=== PATIENT | male | born 1955 | race Caucasian/White ===

== ENCOUNTER 2018-01-26 09:56 | Inpatient (IN) | payer OTHER ==
--- NOTE | 2018-01-26 10:10 | CPEKG ---
Heart Rate: 40 RR Interval: 1500 P-R Interval: 192 QRSD Interval: 96 QT Interval: 552 QTC Interval: 451 P [place]: 5 QRS [place]: 50 T Wave [place]: 99 EKG Severity - ABNORMAL ECG - EKG Impression: SINUS BRADYCARDIA EKG Impression: BORDERLINE INFERIOR Q WAVES EKG Impression: PROBABLE ANTEROLATERAL INFARCT, OLD Electronically Signed By: Farzaneh Quijano 27-Jan-2018 18:03:51
[2018-01-26] MEDS ORDERED: ONDANSETRON 4 MG/2 ML VIAL IVP ONE (10:14)
[2018-01-26] MEDS ORDERED: NS 1,000 ML IV ONE (10:14)
--- NOTE | 2018-01-26 10:23 | EDPHY ---
H & P Stated Complaint: syncopal episode Time Seen by Provider: 01/26/18 10:03 HPI/ROS: CHIEF COMPLAINT: Syncope HISTORY OF PRESENT ILLNESS: The patient is a 62-year-old man with a history of developmental delay and is now being worked up for a tumor in the frontal skull base. 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 He lost his vision 2 weeks ago. He was at an appointment with the neurosurgeon Dr. Lm Duarte this morning when he had what they think was a syncopal episode. Mom does not describe any seizure-like activity. The patient states that he has been slightly nauseous and vomited a couple times in the last few days. No diarrhea. No fever. No headaches. No focal weakness or deficits other than the vision loss. At the neurosurgery office his heart rate was in the 30s and he was transferred here. The patient is slightly diaphoretic. He denies chest pain or shortness of breath. He denies any previous history of pulmonary disease. REVIEW OF SYSTEMS: Constitutional: denies: chills, fever, recent illness, recent injury EENTM: See HPI Respiratory: denies: cough, shortness of breath Cardiac: denies: chest pain, irregular heart rate, lightheadedness, palpitations Gastrointestinal/Abdominal: denies: abdominal pain, diarrhea, nausea, vomiting, blood streaked stools Genitourinary: denies: dysuria, frequency, hematuria, pain Musculoskeletal: denies: joint pain, muscle pain Skin: denies: lesions, rash, jaundice, bruising Neurological: denies: headache, numbness, paresthesia, tingling, dizziness, weakness Hematologic/Lymphatic: denies: blood clots, easy bleeding, easy bruising Immunologic/allergic: denies: HIV/AIDS, transplant EXAM: GENERAL: Slightly diaphoretic, moderate distress HEAD: Atraumatic, normocephalic. EYES: Eyes open white and slightly dysconjugate, baseline according to mom ENT: TMs normal, nares patent, oropharynx clear without exudates. Moist mucous membranes. NECK: Normal range of motion, supple without lymphadenopathy or JVD. LUNGS: Breath sounds clear to auscultation bilaterally and equal. No wheezes rales or rhonchi. HEART: Bradycardic without murmurs, rubs or gallops. ABDOMEN: Soft, nontender, normoactive bowel sounds. No guarding, no rebound. No masses appreciated. BACK: No CVA tenderness, no spinal tenderness, step-offs or deformities EXTREMITIES: Normal range of motion, no pitting or edema. No clubbing or cyanosis. NEUROLOGICAL: Cranial nerves II through XII grossly intact. Normal speech, normal gait. 5/5 strength, normal movement in all extremities, normal sensation PSYCH: Normal mood, normal affect. SKIN: Warm, dry, normal turgor, no visible rashes or lesions. Source: Patient, Family, RN/MD Exam Limitations: No limitations - Medical/Surgical History Hx Asthma: No Hx Chronic Respiratory Disease: No Hx Diabetes: No Hx Cardiac Disease: Yes Hx Renal Disease: No Hx Cirrhosis: No Hx Alcoholism: No Hx HIV/AIDS: No Hx Splenectomy or Spleen Trauma: No Other PMH: HTN, brain tumor, meniers, hepatitis - Family History Significant Family History: No pertinent family hx - Social History Smoking Status: Never smoked Alcohol Use: Sober Drug Use: None Constitutional: Initial Vital Signs Temperature (C) 36.6 C 01/26/18 10:01 Heart Rate 39 L 01/26/18 10:01 Respiratory Rate 18 01/26/18 10:01 Blood Pressure 101/61 01/26/18 10:01 O2 Sat (%) 94 01/26/18 10:01 O2 Delivery Mode Nasal Cannula O2 (L/minute) 2 Allergies/Adverse Reactions: No Known Allergies Allergy (Unverified 01/26/18 10:01) Home Medications: Medication Instructions Recorded Aspirin [Aspirin 81mg (*)] 81 mg PO DAILY 01/26/18 Lisinopril/Hctz 20/12.5MG 1 ea PO DAILY 01/26/18 [Zestoretic/Prinzide 20/12.5MG (*)] Metoprolol Succinate Xr [Toprol Xl 50 mg PO DAILY 01/26/18 50 mg (*)] Medical Decision Making - Diagnostics EKG Interpretation: An EKG obtained and was read and documented in trace view. Please see trace view for full reading and report. Sinus bradycardia rate of 40, no acute ischemic changes Imaging: Discussed imaging studies w/ yard caller Radiologist ED Course/Re-evaluation: The patient has an infiltrate on x-ray and an elevated white blood count. I will start antibiotics and order lactate. He also has bradycardic and will need to be admitted for this in the setting of syncope. Lactate is negative Differential Diagnosis: Partial list of the Differential diagnosis considered include but were not limited to; syncope, bradycardia, seizure, brain tumor, pneumonia, sepsis and although unlikely based on the history and physical exam, I also considered head injury, brain infection, abscess. Critical Care Time: Critical care time spent by Dr. Isabella da silva exclusive with this patient was 45 minutes, exclusive of the PA time exclusive of procedures. The organ system that was at risk was neurologic, pulmonary and I gave diagnostics, admission and treatment to prevent worsening of the patient's condition - Data Points Laboratory Results: Laboratory Results 01/26/18 10:00 01/26/18 10:00 Microbiology Results: MICROBIOLOGY 01/26/18 11:16 Blood Blood Culture - Preliminary 01/26/18 10:51 Blood Blood Culture - Preliminary Medications Given: Amlodipine Besylate (Norvasc) 5 mg PO DAILY CHEN Stop: 07/27/18 08:59 Last Admin: 01/28/18 09:01 Dose: 5 mg Aspirin (Aspirin) 81 mg PO DAILY CHEN Stop: 07/26/18 08:59 Last Admin: 01/28/18 08:58 Dose: 81 mg Azithromycin (Zithromax) 250 mg PO DAILY CHEN PRN Reason: Protocol Stop: 02/27/18 08:59 Last Admin: 01/28/18 08:58 Dose: 250 mg Enoxaparin Sodium (Lovenox) 40 mg SC DAILY CHEN Stop: 07/27/18 09:44 Last Admin: 01/28/18 10:55 Dose: 40 mg Haloperidol (Haldol) 1 - 2 mg PO Q6HRS PRN; Protocol PRN Reason: Agitation Stop: 07/27/18 09:24 Last Admin: 01/28/18 10:51 Dose: 1 mg Ceftriaxone Sodium/Dextrose (Rocephin 1 Gm (Premix)) 50 mls @ 100 mls/hr IV DAILY CHEN PRN Reason: Protocol Stop: 02/27/18 08:59 Last Admin: 01/28/18 08:59 Dose: 50 mls Melatonin (Melatonin) 3 mg PO HS CHEN Stop: 07/26/18 21:59 Last Admin: 01/27/18 21:57 Dose: 3 mg Discontinued Medications Famotidine (Pepcid) 40 mg PO EDNOW ONE Stop: 01/26/18 11:45 Last Admin: 01/26/18 11:45 Dose: 40 mg Haloperidol Lactate (Haldol Injection) 2 mg IVP ONCE ONE Stop: 01/27/18 17:51 Last Admin: 01/27/18 18:03 Dose: 2 mg Sodium Chloride (Ns) 1,000 mls @ 0 mls/hr IV EDNOW ONE; Wide Open PRN Reason: Protocol Stop: 01/26/18 10:15 Last Admin: 01/26/18 10:29 Dose: 1,000 mls Levofloxacin/Dextrose (Levaquin 750 Mg (Premix)) 150 mls @ 100 mls/hr IV EDNOW ONE PRN Reason: Protocol Stop: 01/26/18 12:19 Last Admin: 01/26/18 11:16 Dose: 150 mls Levofloxacin/Dextrose (Levaquin 750 Mg (Premix)) 150 mls @ 100 mls/hr IV DAILY CHEN PRN Reason: Protocol Stop: 02/26/18 08:59 Last Admin: 01/27/18 09:23 Dose: 150 mls Sodium Chloride (Ns) 1,000 mls @ 75 mls/hr IV CONT CHEN Stop: 01/28/18 03:19 Last Admin: 01/27/18 06:12 Dose: 1,000 mls Ondansetron HCl (Zofran) 4 mg IVP EDNOW ONE Stop: 01/26/18 10:15 Last Admin: 01/26/18 11:45 Dose: 4 mg Point of Care Test Results: Chemistry 01/26/18 10:11 POC Troponin I 0.00 ng/mL ng/mL (0.00-0.08) Departure - Departure Disposition: [facility] Inpatient Acute Clinical Impression: Bradycardia, Syncope and collapse Pneumonia Qualifiers: Pneumonia type: due to unspecified organism Laterality: unspecified laterality Lung location: lower lobe of lung Qualified Code(s): J18.1 - Lobar pneumonia, unspecified organism Condition: Fair
[2018-01-26 10:25] LABS: PLATELET COUNT 235 10^3/uL (150-400)
[2018-01-26 10:41] LABS: CREATINE KINASE 48 IU/L (0-224)
[2018-01-26 10:42] LABS: INR 1.15 (0.83-1.16); PROTIME(PATIENT) 14.9 SEC (12.0-15.0)
[2018-01-26] MEDS ORDERED: FAMOTIDINE 20 MG TAB ONE (11:42)
[2018-01-26] MEDS ORDERED: FAMOTIDINE 20 MG TAB PO ONE (11:44)
[2018-01-26] MEDS ORDERED: ACETAMINOPHEN 325 MG TAB PO PRN (13:59)
[2018-01-26] MEDS ORDERED: ONDANSETRON DISINTEGRATING 4 MG TAB PO PRN (13:59)
[2018-01-26] MEDS ORDERED: ONDANSETRON 4 MG/2 ML VIAL IVP PRN (13:59)
--- NOTE | 2018-01-26 14:36 | PDGENHP ---
History and Physical - Chief Complaint syncope - History of Present Illness The patient is a 62-year-old man with a history of developmental delay and recent diagnosis of optic nerve tumor with subsequent blindness who was at his neuro surgery office and had a syncopal episode. He said he felt lightheaded. He was noted to have a HR in the 30's while at the office. He now feels his normal self. He did not have LOC. There was no noted seizure activity. He does not have a hx of bradycardia. He had been feeling his normal self until this morning although the records suggest that he may have had some nausea and emesis over the past few days. he denies cp, sob, n/v/d, fever, focal weakness. In the ER, CXR showed a left sided pneumonia. EKG: sinus bradycardia PMHx: HTN optic nerve tumor blindness Developmental kyle Soc Hx: no T/E/I FmHx: non contributory History Information - Allergies/Home Medication List Allergies/Adverse Reactions: No Known Allergies Allergy (Unverified 01/26/18 10:01) Home Medications: Aspirin [Aspirin 81mg (*)] 81 mg PO DAILY 01/26/18 [Last Taken 01/26/18] Lisinopril/Hctz 20/12.5MG [Zestoretic/Prinzide 20/12.5MG (*)] 1 ea PO DAILY [Last Taken 01/26/18] Metoprolol Succinate Xr [Toprol Xl 50 mg (*)] 50 mg PO DAILY 01/26/18 [Last Taken 01/26/18] I have personally reviewed and updated: medical history, social history - Social History Smoking Status: Never smoked Alcohol Use: Sober Drug Use: None Review of Systems Review of Systems: ROS: 10pt was reviewed & negative except for what was stated in HPI & below Physical Exam Physical Exam: Temp Pulse Resp BP Pulse Ox 36.3 C 42 L 16 122/70 H 97 01/26/18 12:17 01/26/18 12:17 01/26/18 12:17 01/26/18 12:17 01/26/18 12:17 O2 (L/minute) 2 Constitutional: no apparent distress Ears, Nose, Mouth, Throat: moist mucous membranes Cardiovascular: bradycardia, No edema Respiratory: no respiratory distress, no rales or rhonchi, clear to auscultation Gastrointestinal: normoactive bowel sounds, soft, non-tender abdomen Skin: warm Neurologic: AAOx3 Psychiatric: interacting appropriately, not anxious, not encephalopathic Lymph, Heme, Immunologic: No petechiae Lab Data & Imaging Review 01/26/18 10:00 01/26/18 10:00 WBC 14.38 10^3/uL (3.80-9.50) H 01/26/18 10:00 RBC 5.58 10^6/uL (4.40-6.38) 01/26/18 10:00 Hgb 17.4 g/dL (13.7-17.5) 01/26/18 10:00 Hct 47.7 % (40.0-51.0) 01/26/18 10:00 MCV 85.5 fL (81.5-99.8) 01/26/18 10:00 MCH 31.2 pg (27.9-34.1) 01/26/18 10:00 MCHC 36.5 g/dL (32.4-36.7) 01/26/18 10:00 RDW 12.2 % (11.5-15.2) 01/26/18 10:00 Plt Count 235 10^3/uL (150-400) 01/26/18 10:00 MPV 10.7 fL (8.7-11.7) 01/26/18 10:00 Neut % (Auto) Not Reported 01/26/18 10:00 Lymph % (Auto) Not Reported 01/26/18 10:00 [place] % (Auto) Not Reported 01/26/18 10:00 Eos % (Auto) Not Reported 01/26/18 10:00 Baso % (Auto) Not Reported 01/26/18 10:00 Nucleat RBC Rel Count Not Reported 01/26/18 10:00 Absolute Neuts (auto) Not Reported 01/26/18 10:00 Absolute Lymphs (auto) Not Reported 01/26/18 10:00 Absolute Monos (auto) Not Reported 01/26/18 10:00 Absolute Eos (auto) Not Reported 01/26/18 10:00 Absolute Basos (auto) Not Reported 01/26/18 10:00 Absolute Nucleated RBC Not Reported 01/26/18 10:00 Immature Gran % Not Reported 01/26/18 10:00 Seg Neutrophils % 69.0 % 01/26/18 10:00 Band Neutrophils % 1.0 % 01/26/18 10:00 Lymphocytes % 22.0 % 01/26/18 10:00 Monocytes % 8.0 % 01/26/18 10:00 Eosinophils % 0 % 01/26/18 10:00 Basophils % 0 % 01/26/18 10:00 Metamyelocytes % 0 % 01/26/18 10:00 Myelocytes % 0 % 01/26/18 10:00 Promyelocytes % 0 % 01/26/18 10:00 Blast Cells % 0 % 01/26/18 10:00 Immature Gran # Not Reported 01/26/18 10:00 Absolute Seg Neuts 9.92 10^/uL (1.70-6.50) H 01/26/18 10:00 Absolute Band Neuts 0.14 10^3/uL (0.00-0.70) 01/26/18 10:00 Absolute Lymphocytes 3.16 10^3/uL (1.00-3.00) H 01/26/18 10:00 Absolute Monocytes 1.15 10^3/uL (0.30-0.80) H 01/26/18 10:00 Absolute Eosinophils 0.00 10^3/uL (0.03-0.40) L 01/26/18 10:00 Absolute Basophils 0.00 10^3/uL (0.02-0.10) L 01/26/18 10:00 Absolute Metamyelocyte 0.00 10^3/mL (0.00-0.00) 01/26/18 10:00 Absolute Myelocytes 0.00 10^3/mL (0.00-0.00) 01/26/18 10:00 Absolute Promyelocytes 0.00 10^3/uL (0.00-0.00) 01/26/18 10:00 Absolute Plasma Cells 0.00 10^3/uL (0.00-0.00) 01/26/18 10:00 Atypical Lymphocytes 2+ H 01/26/18 10:00 Absolute Blast Cells 0.00 10^3/uL (0.00-0.00) 01/26/18 10:00 Plasma Cells % 0 % 01/26/18 10:00 Platelet Estimate ADEQUATE (ADEQ) 01/26/18 10:00 Polychromasia 1+ H 01/26/18 10:00 PT 14.9 SEC (12.0-15.0) 01/26/18 10:00 INR 1.15 (0.83-1.16) 01/26/18 10:00 APTT 25.3 SEC (23.0-38.0) 01/26/18 10:00 VBG Lactic Acid 1.1 mmol/L (0.7-2.1) 01/26/18 11:38 Sodium 130 mEq/L (135-145) L 01/26/18 10:00 Potassium 4.6 mEq/L (3.3-5.0) 01/26/18 10:00 Chloride 97 mEq/L (97-110) 01/26/18 10:00 Carbon Dioxide 21 mEq/l (22-31) L 01/26/18 10:00 Anion Gap 12 mEq/L (8-16) 01/26/18 10:00 BUN 22 mg/dL (7-23) 01/26/18 10:00 Creatinine 1.0 mg/dL (0.7-1.3) 01/26/18 10:00 Estimated GFR > 60 01/26/18 10:00 Glucose 116 mg/dL (70-100) H 01/26/18 10:00 Calcium 9.9 mg/dL (8.5-10.4) 01/26/18 10:00 Total Bilirubin 1.3 mg/dL (0.1-1.4) 01/26/18 10:06 Creatine Kinase 48 IU/L (0-224) 01/26/18 10:00 CK-MB (CK-2) Fraction 1.09 ng/mL (0.00-4.55) 01/26/18 10:00 POC Troponin I 0.00 ng/mL (0.00-0.08) 01/26/18 10:11 Assessment & Plan Assessment: #Syncope #Bradycardia #Left sided pneumonia #N/V #Hyponatremia #Developmental Delay #Optic nerve tumor with recent blindness #Hx of HTN Plan: Admit Cards consult IVF TTE, telemetry, trop hold BP meds cont Levaquin SCD's
--- NOTE | 2018-01-26 15:34 | PDMN ---
Medical Necessity Medical necessity: Pt meets inpt criteria per MD order and MCG M-340, syncope, A -1 day. Pt admitted w/syncope, bradycardia (HR in 39-42), probable PNA, IVF, IV ABX's, pt has comorbid conditions of HTN, optic nerve tumor, blindness, developmental delay. Anticipate >2 MN for ongoing eval and treatment.
[2018-01-26] MEDS: NS 1,000 ML IV SCH (16:30)
[2018-01-27 05:26] LABS: PLATELET COUNT 157 10^3/uL (150-400)
[2018-01-27] MEDS: NS 1,000 ML IV SCH (06:12)
--- NOTE | 2018-01-27 07:38 | SOAPPROG ---
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 Ongoing bradycardia no new neuro issues Plan: [facility] or transfer Cardiology consult today due to bradycardia 01/27/18 07:35 01/27/18 07:38 Subjective: Patient is awake and alert, sitting in bedside chair feeling "fine." He denies numbness tingling or weakness. He is blind Objective: Vital Signs Temp Pulse Resp BP Pulse Ox 36.6 C 47 L 16 130/74 H 99 01/27/18 04:00 01/27/18 04:00 01/27/18 04:00 01/27/18 04:00 01/27/18 04:00 Microbiology 01/26/18 16:15 Respiratory Panel (PCR) - Final Nasal, Sinus - Swab No Organism Detected Laboratory Results 01/27/18 03:20 01/27/18 03:20 01/26/18 01/27/18 01/28/18 05:59 05:59 05:59 Intake Total 2258 Balance 2258 PT 14.9 SEC (12.0-15.0) 01/26/18 10:00 INR 1.15 (0.83-1.16) 01/26/18 10:00 Neuro: A+Ox4 Virk, sens +Lt blind speech clear ICD10 Worksheet Patient Problems: Problems Problem Status Onset Bradycardia Acute Pneumonia Acute Syncope and collapse Acute
[2018-01-27] MEDS ORDERED: METOPROLOL SUCCINATE XR 50 MG TAB PO SCH (09:00)
--- NOTE | 2018-01-27 09:11 | HOSPPROG ---
Hospitalist Progress Note Assessment/Plan: # syncope/bradycardia - discuss with nsg regarding possible Alan's reflex - hold metop, follow on tele - cards eval, possible pcm # recent diagnosis of intracranial tumor causing blindness - i am not clear on the exact diagnosis (if known) or prognosis at this point - plan is surgical resection at either - inpatient transfer vs as outpatient # developmental delay # htn - cont Subjective: patient without acute complaints today; blindness persists Objective: Vital Signs Temp Pulse Resp BP Pulse Ox 36.9 C 40 L 14 137/76 H 91 L 01/27/18 07:39 01/27/18 07:39 01/27/18 07:39 01/27/18 07:39 01/27/18 07:39 Microbiology 01/26/18 16:15 Respiratory Panel (PCR) - Final Nasal, Sinus - Swab No Organism Detected Laboratory Results 01/27/18 03:20 01/27/18 03:20 01/26/18 01/27/18 01/28/18 05:59 05:59 05:59 Intake Total 2258 Balance 2258 PT 14.9 SEC (12.0-15.0) 01/26/18 10:00 INR 1.15 (0.83-1.16) 01/26/18 10:00 chart reviewed discussed with Heather diallo personally reviewed CXR reviewed ICD10 Worksheet Patient Problems: Problems Problem Status Onset Bradycardia Acute Syncope and collapse Acute Pneumonia Acute
[2018-01-27] MEDS: ASPIRIN 81 MG CHEWABLE TAB PO SCH (10:19)
--- NOTE | 2018-01-27 10:49 | ECHO ---
[email or web address] [address] [address] Main: [phone] Fax: [email or web address] Echocardiogram Name: RAVI MONTEZ MR#: [id number] Study Date: 01/27/2018 Study Time: 08:20 AM Date of : 1955 Age: 62 year(s) Height: 167.6 cm (66 in.) Weight: 87.54 kg (193 lb.) BSA: 1.97 m2 Gender: Male Examination: Echo Indication: Cardiac: syncope Image Quality: Technically Difficult Contrast: Requested by: Imer [place] BP: 137 mmHg/76 mmHg Heart Rate: Rhythm: Indication: Cardiac: syncope Procedure Staff Rib Chopper: Shobha Palafox RDCS Reading Physician: Gerard Dykes MD Requesting Provider: Conclusions: Normal size left ventricle. Mild concentric LV hypertrophy. Normal global systolic LV function. EF is 54 %. No regional wall motion abnormality. Normal RV function. The left atrium is mildly dilated. The mitral valve is normal in appearance and function. No mitral stenosis is present. Technically difficult and limited assessment of mitral regurgitation. There is no significant aortic valve regurgitation. No aortic valve stenosis is present. Technically difficult visualization of tricuspid regurgitation. Normal size aortic root measuring 2.8 cm. Normal size ascending aorta measuring 2.8 cm. No previous. Measurements: Chambers Valvular Assessment AV/MV Valvular Assessment TV/PV Normal Normal Normal Name Value Range Name Value Range Name Value Range Ao Melia (2D): 2.8 cm (1.4 cm-2.6 AV Vmax: 1.21 m/s (1 m/s-1.7 PV Vmax: 1.43 m/s (0.6 m/s-0.9 cm) m/s) m/s) IVSd (2D): 1.1 cm (0.6 cm-1.1 AV maxP mmHg ( - ) PV PGmax: 8 mmHg ( - ) cm) AV meanP mmHg ( - ) LVDd (2D): 4.1 cm (4.2 cm-5.9 MARIA L (VTI): 2.6 cm ( - ) cm) MV E Vmax: 0.70 m/s ( - ) LVDs (2D): 3.0 cm (2.1 cm-4 MV A Vmax: 0.87 m/s ( - ) cm) MV E/A: 0.80 ( - ) MV PHT: 0.082 s ( - ) Patient: RAVI MONTEZ Study Date: 01/27/2018 Page 1 of 3 08:20 AM LVPWd (2D): 1.2 cm (0.6 cm-1 MVA (PHT): 2.7 s ( - ) cm) LVOTd 2.1 cm 2.1 cm mm LVEF (BP): 54 % (>=55 %) RVDd(2D): 3.2 cm (1.9 cm-3.8 cmmm) Continued Measurements: Chambers Valvular Assessment AV/MV Name Value Name Value LADs: 3.9 cm MV DecTime: 253 m/s LADs Lon.8 cm MV E' Septal: 0.07 m/s LA Area: 18.3 cm2 MV E/E' Septal: 10.30 LA Volume: 69 ml MV E/E' Lateral: 14.00 LA Volume Index: 35.0 ml/m2 RA Area: 14.3 cm2 Additional Vessels Name Value Ao Ascendin.8 cm Findings: Left Ventricle: Normal size left ventricle. Mild concentric LV hypertrophy. Normal global systolic LV function. EF is 54 %. No regional wall motion abnormality. Unable to assess diastolic dysfunction. Right Ventricle: Normal size right ventricle. Normal RV function. Left Atrium: The left atrium is mildly dilated. Right Atrium: The right atrium is normal in size. Mitral Valve: The mitral valve is normal in appearance and function. No mitral stenosis is present. Technically difficult and limited assessment of mitral regurgitation. Aortic Valve: The aortic valve is normal in appearance and function. There is no significant aortic valve regurgitation. No aortic valve stenosis is present. Technically difficult visualization of aortic valve leaflets. Tricuspid Valve: The tricuspid valve is normal in appearance and function. Technically difficult visualization of tricuspid regurgitation. Pulmonic Valve: The pulmonic valve is normal in appearance and function. There is no pulmonic regurgitation seen. Aorta: The aorta is normal. Normal size aortic root measuring 2.8 cm. Normal size ascending aorta measuring 2.8 cm. IVC: The IVC is normal sized. Pericardium: No pericardial effusion. Evidence suggestive of hemodynamic compromise. No pleural effusion. Exam Comments: Technically difficult due to patient body habitus. (No Signature Object) Patient: RAVI MONTEZ Study Date: 01/27/2018 Page 2 of 3 08:20 AM Patient: RAVI MONTEZ Study Date: 01/27/2018 Page 3 of 3 08:20 AM [id number]
--- NOTE | 2018-01-27 13:19 | GCON ---
[f rep st] CONSULTATION CARDIOLOGY CONSULTATION. DATE OF CONSULTATION: 01/27/2018 REASON FOR CONSULTATION: We were asked by Dr. Vazquez, of [facility] to evaluate the patient for his hypotension and recent episode of syncope. HISTORY OF PRESENT ILLNESS: The patient is a 62-year-old male with a history of developmental delay, recent diagnosis of an intracranial tumor with resultant blindness for the past 2 weeks, enoc echeverria, who was referred to the ED after a syncopal episode in the neurosurgeon's office on 01/26/2018. Jose vargas is here today in the hospital with his mom present at bedside. He reports that he was in his appoi ntment with Dr. Duarte when he was noted to "slump" in his wheelchair. He did have a dona loss of co nsciousness lasting approximately 2 minutes. He reported feeling "lightheaded" right before the episo de occurred. There was some associated diaphoresis. He denies any chest pain, palpitations, or dysp whit preceding this. He denies any other episodes in his recent history similar to this. Over the st couple of weeks, he has may have had 2 or 3 episodes of vomiting. He denies any cough, hemoptysis , fever, chills, diarrhea, dysuria, hematuria, palpitations, chest pains. 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 Of note, his x-ray in the ED showed a left-sided pneumonia. PAST SURGICAL HISTORY: Surgery at age 7 for an undescended testicle. PAST MEDICAL HISTORY: 1. Hypertension. 2. Meniere's disease. 3. 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 4. Intracranial tumor. 5. Blindness. 6. Developmental delay. SOCIAL HISTORY: He denies any alcohol or tobacco intake. FAMILY HISTORY: Sister has multiple sclerosis. Father of dementia. Mother is in good health. ALLERGIES: No known drug allergies. OUTPATIENT MEDICATIONS: Include: Lisinopril with hydrochlorothiazide, aspirin, and metoprolol succin ate 50 mg p.o. daily. REVIEW OF SYSTEMS: As per HPI. A complete 10-point review of systems was obtained and is negative e xcept for what is dictated. PHYSICAL EXAMINATION: VITAL SIGNS: Blood pressure of 137/76, heart rate of 40, respirations 14, O2 saturation 91% on room air, temperature of 98.4 degrees Fahrenheit. GENERAL: He is a very pleasant male in no apparent distress. HEENT: Eyes are without scleral icterus. Mucous membranes moist. No gross hearing deficits detected. HEART: Regular rate and rhythm with no rubs, gallops, or murmurs. LUNGS: Clear, but mildly diminished in the left base. SKIN: Warm and dry. PSYCH: Normal mood and a ffect for given situation and known developmental delay. NEURO: He is moving all of his extremities. : No Drake present. LABS AND DATA: CBC with WBC 8.36, hemoglobin 14.2, hematocrit 40.4, platelet count 157. BMP with so dium 131, potassium 4.8, chloride 100, CO2 23, BUN 21, creatinine 0.9, glucose 76. Troponin negative . Echocardiogram data shows EF of 54. LA is mildly dilated. Mitral valve has a normal appearance w ithout stenosis, no significant regurgitation. Normal-sized ascending aorta and root. 01/26/2018, he ad CT shows bilateral frontal skull base mass with extension into the anterior inferior and medial as pects of bilateral frontal lobes involving the left sphenoid and ethmoid sinuses. Extension into the left orbital medial aspect better defined on recent MRI with a differential diagnosis of nasopharyng eal carcinoma, metastasis, malignant meningioma or osteosarcoma. 01/26/2018, chest x-ray shows hazy o pacity of the left lung with blunting of costophrenic angle. A 12-lead ECG personally interpreted sh ows sinus bradycardia with incomplete right bundle branch block, borderline 1st degree AV block. Tel emetry reviewed shows sinus bradycardia with lows in the 30s, but heart rates have come into the 40s and even up to 50s today. IMPRESSION AND PLAN: The patient is a 62-year-old male diagnosed with a recent brain tumor with resu ltant blindness. 1. Syncope. Unclear etiology, but certainly bradycardia and hypotension may be factors in this. Ap parently, no blood pressure was taken in the neurologist's office, but a heart rate was detected to b e 30. He is on metoprolol succinate, which he reports he has been taking for hypertension for years now. This is being held currently and we will wait approximately two and half days to ensure the med ication is completely out of his system prior to determination of whether pacemaker placement is nece ssary at this point. 2. Hypertension. All of his antihypertensives have been held. His blood pressure appears acceptabl e currently. If he requires antihypertensive therapy, we would prefer that he be started on amlodipi ne which may induce some reflexive tachycardia, which could potentially be actually helpful in his si tuation. 3. Hyponatremia. This is mild and likely related to his hydrochlorothiazide. We would recommend av oiding diuretics at this point. 4. Intracranial tumor. Unclear prognosis from this. He has no symptoms suggestive of angina. He m ay likely proceed to surgical intervention without further cardiac interventions. We will determine how his heart rate recovers after holding beta bret for greater than 48 hours. /[id number]/MODL
--- NOTE | 2018-01-27 15:18 | ASMTCMCOM ---
CM Note CM Note Notes: 01/27/2018 Case Management Note Pt admitted for treatment of bradycardia, near syncope and pneumonia. Pt has recent diagnosis of intracranial tumor that has resulted in blindness. Pt requires an evaluation of his heart before surgery for the tumor can proceed. Per MD transfer to [facility] possible later in the week to address the tumor. Met w/pt and mother Adam Luis [phone]. Adam lives in [place]. Pt has history of developmental delays. Pt lives in a condo with his room mate Jason Murphy. Room mate Jason's niece drives pt to grocery store. Pt walks or uses [employer] to get to work. Pt is employed at [employer]. Pt is well connected and supported with the [employer]. Mom Adam to bring phone number for the [employer] renal case manager so that pt discharge needs can be coordinated. Pt route vending machine servicer is Dr. William Alas. PT is recommending inpatient rehab. Left vm for Radha to review the chart. Case Management d/c poc: to be determined. Case Management to follow. Date Signed: 01/27/2018 03:18 PM Electronically Signed By:Alisson Hughes RN
[2018-01-27] MEDS ORDERED: HALOPERIDOL LACT 5 MG/ML INJ IVP ONE (17:50)
--- NOTE | 2018-01-27 21:34 | HOSPPROG ---
Hospitalist Progress Note Assessment/Plan: Called to bedside for new hallucinations. 62 y m with DD, recently diagnosed intracranial tumor causing blindness S: " I don't want to fall in hole or off raphael" O: tearful, sitting in bed HEENT: blind CV: RRR Psych: seeing holes and scared of falling in. Anxious #Acute hallucinations: -new this evening. LQ can cause confusion, so will stop and change to Azithr/ CTX for CAP coverage. -d/w NSGY in AM if tumors contributing -d/w RN to redirect, melatonin for sleep. If needed, add roll belt Time spent: 30 min bedside evaluating pt, reviewing records and d/w RN (21:00-21 :30) Objective: Vital Signs Temp Pulse Resp BP Pulse Ox 36.9 C 43 L 20 144/72 H 94 01/27/18 16:00 01/27/18 16:00 01/27/18 16:00 01/27/18 16:00 01/27/18 16:00 Microbiology 01/26/18 16:15 Respiratory Panel (PCR) - Final Nasal, Sinus - Swab No Organism Detected Laboratory Results 01/27/18 03:20 01/27/18 03:20 01/26/18 01/27/18 01/28/18 05:59 05:59 05:59 Intake Total 2258 550 Output Total 750 Balance 2258 -200 PT 14.9 SEC (12.0-15.0) 01/26/18 10:00 INR 1.15 (0.83-1.16) 01/26/18 10:00 ICD10 Worksheet Patient Problems: Problems Problem Status Onset Bradycardia Acute Pneumonia Acute Syncope and collapse Acute
[2018-01-27] MEDS: MELATONIN 3 MG TAB PO SCH (21:57)
--- NOTE | 2018-01-28 08:32 | SOAPPROG ---
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 Bradycardia resolved when Metoprolol discontinued New hallucinations started yesterday afternoon and improved with dose of Haldol currently with some ongoing confusion Plan: Dr. Duarte's office has sent a referral to Dr. Lu at the [facility] who will see the patient DC once cleared by Medicine. Subjective: Pt sitting up in bed. He is being fed by staff. He is confused with a charity on. He does reorient. Objective: Vital Signs Temp Pulse Resp BP Pulse Ox 36.6 C 95 20 142/105 H 90 L 01/28/18 07:30 01/28/18 07:30 01/28/18 07:30 01/28/18 07:30 01/28/18 07:30 Laboratory Results 01/27/18 03:20 01/27/18 03:20 01/27/18 01/28/18 01/29/18 05:59 05:59 05:59 Intake Total 2258 800 Output Total 750 Balance 2258 50 PT 14.9 SEC (12.0-15.0) 01/26/18 10:00 INR 1.15 (0.83-1.16) 01/26/18 10:00 Neuro: Oriented to person, year, month. Does not know where he is. Follows commands x 4 speech clear no facial droop He is completely blind ICD10 Worksheet Patient Problems: Problems Problem Status Onset Bradycardia Acute Pneumonia Acute Syncope and collapse Acute
[2018-01-28] MEDS: ASPIRIN 81 MG CHEWABLE TAB PO SCH (08:58)
[2018-01-28] MEDS: AZITHROMYCIN 250 MG TAB PO SCH (08:58)
[2018-01-28] MEDS: amLODIPine BESYLATE 5 MG TAB PO SCH (09:01)
--- NOTE | 2018-01-28 09:37 | HOSPPROG ---
Hospitalist Progress Note Assessment/Plan: # syncope/bradycardia - HR up to 90 off metoprolol, no indication for pacer at this time. Discussed with cards. -cont to monitor on tele off BB # recent diagnosis of intracranial tumor causing blindness - unclear etiology, but warrants resection with blindness -plan is surgical resection at , referral to Dr. Lu placed by neurosurg -consider inpatient transfer if hallucinations persist # hallucinations - unclear if this is delirium or related to tumor. levaquin can also cause confusion and this was stopped last night, changed to Ceftri/ azithro -prn haldol -if not improving off levaquin, consider if this symptom is related to his tumor / blindness and may warrant inpt transfer to [facility] to address # LLL PNA - wbc's normalized, afebrile, BCx's ngtd - cont Ceftriaxone/Azithro # developmental delay # htn - cont # dvt pplx - lovenox # full code Subjective: Pt is tearful, afraid of falling into a dark hole. He thinks he is falling off a bridge. No fevers/chills. Not on O2. Not coughing much. Objective: Vital Signs Temp Pulse Resp BP Pulse Ox 36.6 C 95 20 142/105 H 90 L 01/28/18 07:30 01/28/18 07:30 01/28/18 07:30 01/28/18 07:30 01/28/18 07:30 Laboratory Results 01/27/18 03:20 01/27/18 03:20 01/27/18 01/28/18 01/29/18 05:59 05:59 05:59 Intake Total 2258 800 Output Total 750 Balance 2258 50 PT 14.9 SEC (12.0-15.0) 01/26/18 10:00 INR 1.15 (0.83-1.16) 01/26/18 10:00 - Physical Exam Constitutional: no apparent distress Eyes: PERRL Ears, Nose, Mouth, Throat: moist mucous membranes Cardiovascular: regular rate and rhythym Respiratory: no respiratory distress, other (left basilar crackles) Gastrointestinal: normoactive bowel sounds, soft, non-tender abdomen Skin: warm Musculoskeletal: full muscle strength Psychiatric: anxious, agitated ICD10 Worksheet Patient Problems: Problems Problem Status Onset Bradycardia Acute Pneumonia Acute Syncope and collapse Acute
[2018-01-28] MEDS: HALOPERIDOL 1 MG TAB PO PRN ×2 (09:43→10:51)
[2018-01-28] MEDS: ENOXAPARIN 40 MG/0.4 ML SYR SC SCH (10:55)
--- NOTE | 2018-01-28 13:52 | ASMTCMCOM ---
CM Note CM Note Notes: Pts case discussed in tx rounds. Dr. Phillips will keep patient in the hospital. There are still talks about a possible transfer to [facility]. CM met w/ pts mom and obtained phone number to call his [employer] case operator, Priscila P#: [phone]. A message left for Priscila. Pt is delusional, hallucinating and thinks people are either pushing him off a bridge or into a huge hole. Pt received haldol. CM to follow. Plan: TBD Date Signed: 01/28/2018 01:51 PM Electronically Signed By:MARY Rowley
[2018-01-29] MEDS: MELATONIN 3 MG TAB PO SCH (05:26)
--- NOTE | 2018-01-29 08:17 | NEUSURGPN ---
Assessment/Plan: Assessment: 62 yo male with anterior fossa tumor and blindness Plan: -Bradycardia resolved when Metoprolol discontinued -New hallucinations started 2 days ago and improved with dose of Haldol-better this am -IM on board and cardiology -plan for referral to Dr Lu at [place] once dcd -Dr. Duarte's office has sent a referral to Dr. Lu at the [place] who will see the patient -DC once cleared by Medicine -call with any questions or concerns Subjective: Awake and alert. Rested fine. Chart reviewed. Pt states he "feels fine" Objective: Oriented to person, year, month, says in "[place]" Follows commands x 4 speech clear no facial droop He is completely blind Neuro Check Frequency: per routine Urinary Catheter in Place: No - Physician Discussed Patient with DrBrody: Jeff Neurosurgery Physical Exam - Vitals, I&O, Labs I and O 01/28/18 01/29/18 01/30/18 05:59 05:59 05:59 Intake Total 800 300 Output Total 750 1650 Balance 50 -1350 Intake: Oral (ml) 650 300 IV Infused (ml) 150 levOFLOXACIN 750 MG/ 150 DEXTROSE 150 ml @ 100 mls /hr IV DAILY [facility] Rx#: [id number] Output: Urine (ml) 750 1650 Incontinence 850 Urinal 750 800 Other: Intake Quantity Yes Sufficient Number of Voids Incontinence 1 Toilet 1 Urinal 1 Vital Signs Temp Pulse Resp BP Pulse Ox 36.9 C 68 16 154/88 H 96 01/29/18 04:56 01/29/18 04:56 01/29/18 04:56 01/29/18 04:56 01/29/18 04:56 Laboratory Results 01/27/18 03:20 01/27/18 03:20 ICD10 Worksheet Patient Problems: Problems Problem Status Onset Bradycardia Acute Pneumonia Acute Syncope and collapse Acute
[2018-01-29 10:59] VITALS: BP 153/88
[2018-01-29] MEDS: amLODIPine BESYLATE 5 MG TAB PO SCH (11:35)
[2018-01-29] MEDS: AZITHROMYCIN 250 MG TAB PO SCH (11:35)
[2018-01-29] MEDS: ASPIRIN 81 MG CHEWABLE TAB PO SCH (11:35)
[2018-01-29] MEDS: ENOXAPARIN 40 MG/0.4 ML SYR SC SCH (11:36)
[2018-01-29] MEDS ORDERED: DEXAMETHASONE 4 MG/ML VIAL IVP SCH (13:30)
[2018-01-29] MEDS ORDERED: LISINOPRIL 10 MG TAB PO SCH (13:45)
--- NOTE | 2018-01-29 14:08 | GDS ---
[f rep st] DISCHARGE SUMMARY DISCHARGE DIAGNOSES: 1. 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 2. Syncope secondary to bradycardia. 3. Bradycardia secondary to beta bret, resolved. 4. Hallucinations. 5. Left lower lobe pneumonia. 6. Developmental delay. 7. Hypertension. CONSULTANTS: 1. William Walls PA-C, neurosurgery service. 2. Heather Perdue PA-C, cardiology service. IMAGING STUDIES: 1. Echocardiogram showed an ejection fraction of 54% with mild left ventricular hypertrophy. No reg ional wall motion abnormality and normal RV function. The left atrium is mildly dilated. 2. Head CT, January 26, 2018, showed bilateral frontal skull base mass with extension into the anterior inferomedial aspect of the bilateral frontal lobes and involvement of the left sphenoid and ethmoid sinuses. Extension into the left orbit, medial aspect. Better defined on recent MRI with a differen tial diagnosis of nasopharyngeal carcinoma, metastasis, malignant meningioma or osteosarcoma. No oksana dence of acute hemorrhage, hydrocephalus, or epidural subdural hematoma and no evidence of acute defi nite infarct. 3. Note, MRI from January 20, 2018, also showed this large contrast-enhancing tumor within the frontal skull base with contiguous extension into the undersurface of the frontal lobes bilaterally and also into the posterior ethmoid sinus through the cribriform plate. Associated vasogenic edema within the frontal lobe bilaterally with extension of the tumor posterior into the sella turcica and encompassi ng optic nerves bilaterally. HISTORY: For details, please see history and physical dated January 26, 2018. In brief, the patient is a 62-year-old male with a history of developmental delay and recent diagnosis of an intracranial whit or causing optic nerve compression and subsequent blindness, who presented to the emergency [facility] after syncopal episode. He was recently evaluated by Neurosurgery in the outpatient setting and vides s been referred to Dr. Bess at the [facility] for sampling of this mass versus surgical excision. However, prior to this appointment, he had a syncopal event. [facility] his heart rate was in the 30s. He was admitted to the hospital for further evaluation. HOSPITAL COURSE: Patient admitted to cardiac telemetry unit. His Toprol-XL was held and his bradyca rdia completely resolved. A chest x-ray was suspicious for left lower lobe pneumonia, and he present ed with leukocytosis with a white count of 14.4. He has remained afebrile, has not had significant h ypoxemia. He has been treated with azithromycin and ceftriaxone. During hospitalization, he develop ed hallucinations. It is unclear if this is hospital delirium versus frontal lobe tumor induced maxwell ucinations. He has been managed with Haldol and this has curbed his symptoms. I will also start him on IV dexamethasone given the vasogenic edema seen on recent imaging. I discussed the case with Dr. Moreau, Neurosurgery at the [facility] as I suspect he needs more urgent attention to this intracr anial tumor given his sudden onset of blindness, now with hallucinatory symptoms and vasogenic edema. The patient will be transferred to the [facility] with the accepting hosp italist being Kevin Wren MD. Neurosurgery service will consult. DISPOSITION: Patient is discharged to [facility] in stable condition. FOLLOWUP: Dr. William Alas, primary care, and the neurosurgery service through the [facility]. DISCHARGE MEDICATIONS: Please see [facility] completed outpatient medication list. New medications on discharge include ceftriaxone 1 g IV daily, azithromycin 250 mg p.o. daily, dexamethasone 4 mg IV q. 8 hours, amlodipine 5 mg p.o. daily, Tylenol 650 mg p.o. q.4 hours p.r.n., melatonin 3 mg p.o. at bed time, and aspirin 81 mg p.o. daily. His Toprol is discontinued. I am also holding his hydrochloroth iazide. I will also resume his lisinopril given his persistently elevated blood pressures. His CT and brain MRI we sent with the patient in transfer on CD for review. /[id number]/MODL
--- NOTE | 2018-01-29 16:04 | ASMTLACE ---
LACE Length of stay for Answers: 3 days current admission Acuity / Level of Answers: Yes Care: Did the patient have an inpatient admission? Comorbidities - select Answers: Any tumor (including all that apply lymphoma or leukemia) Other Notes: Developmental delay; HT N # of Emergency department Answers: 1-2 visits in the last 6 months Score: 10 Date Signed: 01/29/2018 04:04 PM Electronically Signed By:MARY Rowley
--- NOTE | 2018-01-29 16:15 | ASMTDCNOTE ---
Case Management Discharge Discharge Order Complete? Answers: Yes Patient to Obtain Answers: Other Medications Transportation Arranged Answers: Other Notes: [facility] will Pick (Date 01/29/2018 06:00 PM & Time) EMTALA Complete Answers: Yes Case Management Transport Answers: Yes Form Complete Faxed Final Orders Answers: Yes Agency/Facility Transfer Answers: Yes Report Printed & Faxed to Receiving Agency Family Notified Answers: Yes Discharge Comments Notes: Pts case discussed in tx rounds. Pt is being transferred to [facility]. Pt will be going to room 979. [facility] will be transferring pt in a BLS stretcher at 6PM. EMTALA completed. CM provided JOSE M García w/ phone number to give report. SAVAGE Novak has printed out pts chart and imaging CDs will go with pt on a disc. CM notified pts Mom. Pts Mom would prefer to ride w/ [facility]. CM called [facility] and they said that pts Mom will most likely be able to do so but it is up to the chassis driver. CM communicated this to pts Mom. CM available for changes. Plan: [facility] Date Signed: 01/29/2018 04:14 PM Electronically Signed By:MARY oRwley
== END 2018-01-29 18:05 | disposition short-term general hospital (02) | DRG 308 ==
LOC: OBSVTOIN 11:17 → F2W 12:08
PROVIDERS: ADMIT Family Medicine; ATTEND Family Medicine
DX: R00.1 Bradycardia, unspecified (principal); T44.7X5A Adverse effect of beta-adrenoreceptor antagonists, initial encounter; R55 Syncope and collapse; J18.0 Bronchopneumonia, unspecified organism; R44.1 Visual hallucinations; D49.6 Neoplasm of unspecified behavior of brain; G93.6 Cerebral edema; H47.093 Other disorders of optic nerve, not elsewhere classified, bilateral; H47 Other disorders of optic [2nd] nerve and visual pathways; I10 Essential (primary) hypertension; E87.1 Hypo-osmolality and hyponatremia; F89 Unspecified disorder of psychological development
CPT/HCPCS: 84484-PO; 96374; 97116-GP; 97162-GP; 97166-GO; J0696; J1100; J1630; J1650; J1956; J2405